=== PATIENT | female | born 2000 | race Hispanic/Latino ===

== ENCOUNTER 2025-04-06 12:33 | Emergency (ER) | payer BC ==
[~2025-04-06] VITALS: Ht 157.5 cm; Wt 77.1 kg
[2025-04-06 14:40] LABS: BASOPHILS # (AUTO) 0.06 K/uL (0.00-0.20); BASOPHILS % (AUTO) 0.4 % (0.0-5.0); EOSINOPHILS # (AUTO) 0.05 K/uL (0.00-0.70); EOSINOPHILS % (AUTO) 0.3 % (0.0-8.0); HEMATOCRIT 42.9 % (36-48); IMMATURE GRANULOCYTE ABSOLUTE 0.09 K/uL (0-1); LYMPHOCYTES # (AUTO) 4.3 K/uL (1.0-4.8); LYMPHOCYTES % (AUTO) 29.3 % (21.0-51.0); MEAN CORPUSCULAR HEMOGLOBIN 28.6 pg (27.0-33.0); MEAN CORPUSCULAR HGB CONC 33.1 g/dL (32.0-36.0); MEAN CORPUSCULAR VOLUME 86.3 fL (79-99); MONOCYTES # (AUTO) 0.8 K/uL (0.1-1.0); MONOCYTES % (AUTO) 5.3 % (3.0-13.0); NEUTROPHILS # (AUTO) 9.3 K/uL (1.8-7.7); NEUTROPHILS % (AUTO) 64.1 % (40.0-77.0); PLATELET COUNT (AUTO) 371 K/uL (130-400); RED BLOOD CELL COUNT(AUTO) 4.97 MIL/uL (4.00-5.50); WHITE BLOOD COUNT (AUTO) 14.5 K/uL (4.8-10.8)
--- NOTE | 2025-04-06 14:52 | EKG ---
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
[2025-04-06] MEDS: 0.9%NACL 1000ML 1,000 ML IV ONE (14:54)
[2025-04-06 14:55] LABS: CREATININE 0.8 mg/dL (0.5-1.0)
[2025-04-06 14:59] LABS: POTASSIUM 2.8 mmol/L (3.5-5.1)
[2025-04-06] MEDS: PoTASSium BIcarbonate/CIT AC 25 MEQ TABLET.EFF PO ONE (15:10)
--- NOTE | 2025-04-06 15:43 | ERN ---
General Chief Complaint: Adult-Asthma Stated Complaint: OTHER Time Seen by MD: 12:34 Source: patient History of Present Illness Initial Comments PATIENT IS A 24-YEAR-OLD FEMALE COMING IN TO BE EVALUATED FOR ASTHMA EXACERBATION. PER PATIENT SHE COULD NOT FIND HER INHALER. SHE STATES THAT SHE WAS HAVING AN ASTHMA ATTACK AND SHE ALMOST PASSED OUT. Allergies: Coded Allergies: No Known Drug Allergies (Unverified Allergy, Unknown, 04/06/25) Past Medical History Past Medical History: Asthma Past Surgical History: Tonsillectomy ROS Dictation CONSTITUTIONAL: NO CHILLS, NO FEVER, NO WEAKNESS, NO DIAPHORESIS, NO MALAISE. HEAD/FACE: NO SIGNS OF TRAUMA. EENT: NO EYE PAIN, NO BLURRED VISION, NO TEARING, NO DOUBLE VISION, NO EAR PAIN, NO EAR DISCHARGE, NO NOSE PAIN, NO NASAL CONGESTION, NO THROAT PAIN, NO THROAT SWELLING, NO MOUTH PAIN. RESPIRATORY: NO COUGH, NO ORTHOPNEA, NO SOB, NO STRIDOR, NO WHEEZING. CARDIOVASCULAR: NO CHEST PAIN, NO EDEMA, NO PALPITATIONS, NO SYNCOPE. GASTROINTESTINAL/ABDOMINAL: NO ABDOMINAL PAIN, NO CONSTIPATION, NO DIARRHEA, NO NAUSEA, NO VOMITING. GENITOURINARY: NO ABNORMAL DISCHARGE, NO DYSURIA, NO FREQUENT URINATION, NO HE MATURIA. NO COMPLAINTS OF PAIN IN THE GENITALS. MUSCULOSKELETAL: NO BACK PAIN, NO GOUT, NO JOINT PAIN, NO JOINT SWELLING, NO M USCLE PAIN, NO MUSCLE STIFFNESS, NO NECK PAIN. INTEGUMENTARY: NO CHANGE IN COLOR, NO CHANGE IN HAIR/NAILS, NO DRYNESS, NO LESI ON, NO LUMPS, NO RASH. NEUROLOGICAL/PSYCH: NO ANXIETY, NOT DEPRESSED, NO EMOTIONAL PROBLEM, NO HEADACHE, NO NUMBNESS, NO PRE-EXISTING DEFICIT, NO HISTORY OF SEIZURES, NO TREMORS, NO WEAKNESS. HEMATOLOGIC/LYMPHATIC: NOT ANEMIC, NO HISTORY OF BLOOD CLOTS, NO APPARENT BLEEDING, NO BRUISING, GLANDS NOT SWOLLEN. ALL SYSTEMS NEGATIVE, EXCEPT NOTED. Physical Exam Physical Exam Dictation VITAL SIGNS: REVIEWED. GENERAL APPEARANCE: ALERT, ORIENTED X3, NO ACUTE DISTRESS, OBESE. HEAD AND FACE: NON-TRAUMATIC. EYES: PERRL, PINK CONJUNCTIVAS, EYELID NO TRAUMA, ANTERIOR CHAMBER CLEAR. EARS: PINNAS INTACT AND NO SIGNS OF TRAUMA OR ERYTHEMA. EAR CANALS CLEAR AND NO DISCHARGE. TMS NO ERYTHEMA. NOSE: NO DISCHARGE, NO BLEEDING. OROPHARYNX: MOUTH NORMAL, TEETH NO CARIES, TONGUE PINK. PHARYNX CLEAR, NO ERYTHEMA. TONSILS NO EXUDATES, NO ABSCESSES NOTED. MUCOUS MEMBRANE MOIST. NECK: SUPPLE, NON-TENDER, NO THYROMEGALY, NO MASSES, NO JVD, NO BRUITS. BREAST: DEFERRED. CHEST: NO TENDERNESS, NO CREPITUS, NO PARADOXICAL MOVEMENT, NO RETRACTIONS. LUNGS: CLEAR, WELL-VENTILATED, SYMMETRIC, NO RALES, NO WHEEZING, NO RHONCHI, NO STRIDOR, GOOD BREATH SOUNDS BILATERALLY. HEART: REGULAR RATE, REGULAR RHYTHM, NO MURMUR, NO GALLOPS. VASCULAR: NO PERIPHERAL EDEMA. ABDOMEN: SOFT, POSITIVE BOWEL SOUNDS, NONDISTENDED, NO GUARDING, NONTENDER, NO REBOUND, NO MASSES NO HEPATOMEGALY, NO SPLENOMEGALY, NO COTTO'S SIGN, NO HERNIAS. RECTAL: DEFERRED. GENITAL: DEFERRED. NEUROLOGICAL: NORMAL SPEECH, GROSS MOTOR FUNCTION INTACT, GROSS SENSORY FUNCTION INTACT. MUSCULOSKELETAL: NECK NONTENDER, FULL RANGE OF MOTION, BACK NONTENDER, FULL RANGE OF MOTION. EXTREMITIES: NONTENDER, FULL RANGE OF MOTION. SKIN: COLOR PINK, DRY, NO TURGOR, NO RASH, NO LACERATIONS, NO ABRASIONS, NO CONTUSIONS. LYMPHATICS: DEFERRED. Results Laboratory and Microbiology Lab and Micro Result Laboratory Tests Test 04/06/25 13:50 04/06/25 14:13 White Blood Count 14.5 K/uL (4.8-10.8) H Red Blood Count 4.97 MIL/uL (4.00-5.50) Hemoglobin 14.2 g/dL (12.0-16.0) Hematocrit 42.9 % (36-48) Mean Corpuscular Volume 86.3 fL (79-99) Mean Corpuscular Hemoglobin 28.6 pg (27.0-33.0) Mean Corpuscular Hemoglobin Concent 33.1 g/dL (32.0-36.0) Red Cell Distribution Width 14.0 % (11.0-15.5) Platelet Count 371 K/uL (130-400) Mean Platelet Volume 9.9 fL (7.5-10.5) Immature Granulocyte % (Auto) 0.6 % (0-1) Neutrophils (%) (Auto) 64.1 % (40.0-77.0) Lymphocytes (%) (Auto) 29.3 % (21.0-51.0) Monocytes (%) (Auto) 5.3 % (3.0-13.0) Eosinophils (%) (Auto) 0.3 % (0.0-8.0) Basophils (%) (Auto) 0.4 % (0.0-5.0) Neutrophils # (Auto) 9.3 K/uL (1.8-7.7) H Lymphocytes # (Auto) 4.3 K/uL (1.0-4.8) Monocytes # (Auto) 0.8 K/uL (0.1-1.0) Eosinophils # (Auto) 0.05 K/uL (0.00-0.70) Basophils # (Auto) 0.06 K/uL (0.00-0.20) Absolute Immature Granulocyte (auto 0.09 K/uL (0-1) Nucleated Red Blood Cells 0.0 % (0.0-0.19) Sodium Level 141 mmol/L (136-145) Potassium Level 2.8 mmol/L (3.5-5.1) *L Chloride Level 104 mmol/L (101-111) Carbon Dioxide Level 23 mmol/L (21-32) Blood Urea Nitrogen 11 mg/dL (7-18) Creatinine 0.8 mg/dL (0.5-1.0) Glomerular Filtration Rate Calc 104 mL/min (>90) Random Glucose 122 mg/dL (70-105) H Total Calcium 9.3 mg/dL (8.5-10.1) Urine HCG, Qualitative NEGATIVE (NEGATIVE) Labs Reviewed?: Yes EKG/XRAY/US/CT/MRI EKG Comment 04/06/2025 TIME 1:05 P.M. VENTRICULAR RATE [address] WAVE ELEVATION OR DEPRESSION UT 123 X-RAY Comment [id number] CONGESTION BILATERALLY MDM MDM: DIFFERENTIAL DIAGNOSIS: ASTHMA EXACERBATION, SHORTNESS OF BREATH, LEUKOCYTOSIS, HYPOKALEMIA RATIONALE: TESTS CONSIDERED AND ORDERED SECONDARY TO SHARED DECISION MAKING INCLUDE: PREVIOUS OUTSIDE RECORDS REVIEWED: OLD ER VISITS. RISK OF COMPLICATION AND/OR MORBIDITY OR MORTALITY OF PATIENT MANAGEMENT: NONE MEDICATIONS-PER MEDICATION RECONCILIATION NEED FOR HOSPITALIZATION: PATIENT DOES NOT MEET CRITERIA FOR HOSPITALIZATION. PATIENT IS A 24-YEAR-OLD FEMALE COMING IN TO BE EVALUATED FOR SHORTNESS OF BREATH. PER MOTHER PATIENT HAD A BAD ASTHMA EXACERBATION AND SHE COULD NOT FIND HER INHALER. SHE STATES THAT SHE ALMOST PASSED OUT. IN ROUTE VIA EMS PATIENT RECEIVED THREE BREATHING TREATMENTS UPON EVALUATION IN TRIAGE PATIENT'S SYMPTOMS HAVE IMPROVED. PATIENT WAS COMPLAINING OF CHEST DISCOMFORT SO CARDIAC WORKUP WAS PERFORMED. PATIENT WAS FOUND TO BE HYPOKALEMIC AND THEN LEUKOCYTOSIS. PATIENT RECEIVED IV STEROIDS WELL IV FLUIDS DUE TO TACHYCARDIA PATIENT FELT MUCH BETTER. WE WILL BE DISCHARGED IN STABLE CONDITION WITH A DIAGNOSIS OF ASTHMA EXACERBATION AND HYPOKALEMIA ED Course Orders Procedure Category Date Status Time 12 Lead Ekg Tracing- EKG 04/06/25 Complete Technical 12:46 ,Urine Test LAB 04/06/25 Complete 12:46 Cbc With Differential LAB 04/06/25 Complete 14:18 Basic Metabolic Panel LAB 04/06/25 Complete 14:18 0.9%Nacl 1000ml (Ns PHA 04/06/25 Complete 1000ml) 14:30 Chest 1vw RAD 04/06/25 Taken 14:18 Potassium Bicarb/Cit PHA 04/06/25 Complete Ac 25meq (K-Lyte Ta 15:30 Methylprednisolone PHA 04/06/25 In Process Succ 125mg (Solu-Medr 16:00 Current Medications Medications (Trade) Dose Ordered Sig/Rayo Route PRN Reason Start Time Stop Time Status Last Admin Dose Admin Methylprednisolone Sodium Succinate (Solu-medROL 125MG) 125 mg ONCE ONCE IVP 04/06/25 16:00 04/06/25 16:01 Potassium Bicarbonate (K-Lyte Tablet Eff 25 Meq Tablet.eff) 50 meq ONCE ONCE PO 04/06/25 15:30 04/06/25 15:31 DC 04/06/25 15:10 Sodium Chloride 1,000 ml @ 0 mls/hr ONCE ONCE IV 04/06/25 14:30 04/06/25 14:31 DC 04/06/25 14:54 Vital Signs Date Time Temp Pulse Resp B/P (MAP) Pulse Ox O2 Delivery O2 Flow Rate FiO2 04/06/25 15:00 98.2 116 18 116/75 96 Room Air* 0 21 04/06/25 14:15 98.2 112 20 122/71 100 Room Air* 0 21 04/06/25 13:15 128 24 128/78 98 Room Air* 0 04/06/25 12:41 98.2 125 17 125/67 100 Room Air 0 DX & DISP Disposition: Discharge Departure Impression: Primary Impression: Asthma exacerbation Additional Impression: Hypokalemia Condition: Stable Scripts Potassium Chloride (K-Dur/Klor-Con) 10 Meq Ertab 1 TAB PO DAILY for 7 Days, #7 TAB 0 Refills Prov: SABINE GASPAR MD 04/06/25 Azithromycin (Azithromycin) 500 Mg Tablet 1 TAB PO DAILY for 5 Days, #5 TAB 0 Refills Prov: SABINE GASPAR MD 04/06/25 Methylprednisolone (Medrol) 8 Mg Tablet 1 TAB PO BID for 5 Days, #10 TAB 0 Refills Prov: SABINE GASPAR MD 04/06/25 Albuterol Sulfate (Ventolin Hfa) 90 Mcg Hfa.aer.ad 2 PUFF IH Q4HPRN PRN for wheezing for 30 Days, #18 GM 0 Refills Prov: SABINE GASPAR MD 04/06/25 Additional Instructions: FOLLOW-UP WITH PRIMARY CARE PROVIDER IN 1 TO 2 DAYS. TAKE MEDICATIONS DIRECTED HERE IN THE EMERGENCY ROOM. OKAY TO CONTINUE HOME MEDICATIONS UNLESS OTHERWISE DISCUSSED DURING YOUR VISIT IN THE EMERGENCY ROOM TODAY. RETURN TO YOUR NEAREST EMERGENCY ROOM IF SYMPTOMS WORSEN OR IF THERE IS NO IMPROVEMENT. CALL 911 IF YOU NEED IMMEDIATE ASSISTANCE. TAKE TYLENOL RPON-NEY-TIXYLZC NEEDED AND IF NO CONTRAINDICATIONS ARE PRESENT. INCREASE ORAL HYDRATION. A WOUND CULTURE OR URINE CULTURE WAS ORDERED HERE IN THE EMERGENCY ROOM DEPARTMENT PLEASE FOLLOW-UP WITH PRIMARY CARE PROVIDER AND ADVISE THEM TO GET REPORTS FROM OUR FACILITY. IF YOU HAD ANY GRAY WRAP/SPLINTS THAT WERE APPLIED HERE, PLEASE DO NOT REMOVE THEM UNTIL YOU SEE YOUR PRIMARY CARE OR SPECIALTY. REFERRALS: Referrals: PARAS NOLASCO (PCP) Time of Disposition: 15:43 SABINE GASPAR MD Apr 06, 2025 15:43
[2025-04-06] MEDS ORDERED: AZIT500T4 PO (15:50)
[2025-04-06] MEDS ORDERED: METH8TAB PO (15:50)
[2025-04-06] MEDS ORDERED: ALBU18HF7 IH (15:50)
[2025-04-06] MEDS ORDERED: POTA-187 PO (15:51)
[2025-04-06] MEDS: Solu-medROL 125MG VIAL IVP ONE (16:04)
--- NOTE | 2025-04-06 16:04 | HMCIMG ---
CHEST 1VW HISTORY: Shortness of breath COMPARISON: None FINDINGS: A frontal projection of the chest was obtained. No acute pulmonary infiltrates is seen. The heart is normal in size. Prominent interstitial markings are seen. No evidence of aortic calcification is seen. IMPRESSION: 1. No acute pulmonary infiltrate is seen.
[2025-04-06 16:05] VITALS: BP 115/72; PULSE 110; RESP 18; TEMP 98.2; O2SAT 100
== END 2025-04-06 16:17 | disposition home or self-care (01) ==
LOC: EDH 12:33
DX: J45.901 Unspecified asthma with (acute) exacerbation (principal); E87.6 Hypokalemia; Z90.89 Acquired absence of other organs
CPT/HCPCS: 99284; 96374; 71045; 80048; 85025; 81025; 36415; 93005; J2919; J7030